=== PATIENT | male | born 1960 | race Caucasian/White ===

== ENCOUNTER → 2017-01-21 | Outpatient (CLI) | payer BC ==
[~2017-01-21] MED LIST: CPR500 PO; GADAVIST IV PRN
--- NOTE | 2017-01-21 07:55 | DIAGNOSTIC IMAGING REPORT ---
MRI OF THE RIGHT FOREFOOT WITHOUT AND WITH GADOLINIUM CLINICAL HISTORY: M77.41 G57.691 right foot pain COMPARISON STUDY: No previous studies for comparison. FINDINGS: Imaging was performed in the axial, sagittal, and coronal planes, before and after the administration of 8.5 cc of intravenous Gadavist. There are no areas of marrow edema to indicate neoplasm or occult fracture. Arthritic changes are present the level the first metatarsal phalangeal joint with joint space narrowing and subchondral marrow edema and cyst formation. There are no MRI findings to indicate a Alexander neuroma. There is no evidence of ligamentous disruption. There are no abnormal soft tissue masses. There is no evidence of pathologic enhancement. 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 No other findings of significance. Electronically signed by: Clovis Parrish M.D. 01/21/2017 7:54 AM Dictated Date/Time: 01/21/2017 7:48 AM
== END | disposition home or self-care (01) ==
LOC: C.MRI 06:34
PROVIDERS: ATTEND Podiatrist Foot & Ankle Surgery
DX: M77.41 Metatarsalgia, right foot (principal); G57.61 Lesion of plantar nerve, right lower limb